=== PATIENT | male | born 1955 | race Caucasian/White ===

== ENCOUNTER 2016-06-20 20:47 | Observation (INO) | payer SELFPAY ==
[~2016-06-20] VITALS: Ht 182.9 cm; Wt 93.9 kg
[2016-06-20 21:26] LABS: HEMATOCRIT 39.1 % (38.0-50.0); MCH 26.6 PG (29.0-34.0); MCHC 32.5 G/DL (30.0-36.0); MEAN PLAT.VOLUME 8.5 uM^3 (9.0-12.4); PLATELET COUNT 122 K/uL (156-360); RBC DIS.WIDTH-CV 14.3 % (11.8-14.6); RBC DIS.WIDTH-SD 42.2 % (39-53); RED BLOOD COUNT 4.77 M/uL (4.00-5.50)
[2016-06-20 21:35] LABS: CHLORIDE 106 mEq/L (99-109); POTASSIUM 3.7 mEq/L (3.7-5.4); SODIUM 140 mEq/L (136-147)
[2016-06-20 21:37] LABS: GLUCOSE 93 mg/dL (70-99)
[2016-06-20 21:38] LABS: ANION GAP 10 MEQ/L (2-14); PROTHROMBIN TIME 10.3 (9.2-11.2); PTT 27.4 (25-32)
[2016-06-20 21:39] LABS: TOTAL BILIRUBIN 0.5 mg/dL (0.0-1.0)
[2016-06-20 21:40] LABS: ALKALINE PHOSPHATASE 96 IU/L (3-129)
[2016-06-20 21:41] LABS: GFR ESTIMATE (CALCULATED) > 59 mL/min/
[2016-06-20 21:42] LABS: UREA NITROGEN (BUN) 14 mg/dL (9-23)
[2016-06-20] MEDS ORDERED: ADVIL200 MG PO (23:01)
[2016-06-21 03:04] VITALS: BP 143/94
[2016-06-21 07:14] LABS: PROTHROMBIN TIME 10.5 (9.2-11.2)
[2016-06-21 07:31] LABS: ALKALINE PHOSPHATASE 80 IU/L (3-129); DIRECT BILIRUBIN 0.1 mg/dL (0.0-0.3); TOTAL BILIRUBIN 0.5 MG/DL (0.0-1.0)
[2016-06-21 08:42] VITALS: BP 130/65
[2016-06-21 12:05] VITALS: BP 149/80
[2016-06-21 17:14] VITALS: BP 147/74
[2016-06-21 20:21] VITALS: BP 167/96
[2016-06-21 23:29] VITALS: BP 148/94
[2016-06-22 03:55] VITALS: BP 125/78
[2016-06-22 07:14] LABS: MCH 26.7 PG (29.0-34.0); MCHC 31.7 G/DL (30.0-36.0); MCV 84.1 FL (86-99); RBC DIS.WIDTH-CV 14.4 % (11.8-14.6); RED BLOOD COUNT 4.16 M/uL (4.00-5.50)
[2016-06-22 07:16] LABS: ANION GAP 5 MEQ/L (2-14); CHLORIDE 108 MEQ/L (99-109); GFR ESTIMATE (CALCULATED) > 59 mL/min/; GLUCOSE 101 mg/dL (70-99); POTASSIUM 4.2 MEQ/L (3.7-5.4); SAMPLE HEMOLYSIS CHECK 0; SAMPLE ICTERIC CHECK 0; SAMPLE LIPEMIA CHECK 0; SODIUM 140 MEQ/L (136-147); UREA NITROGEN (BUN) 11 mg/dL (9-23)
[2016-06-22 08:17] LABS: WHITE BLOOD COUNT 2.5 K/uL (4.1-10.2)
[2016-06-22 08:19] LABS: ALKALINE PHOSPHATASE 70 IU/L (3-129); DIRECT BILIRUBIN 0.1 mg/dL (0.0-0.3)
[2016-06-22 08:20] LABS: TOTAL BILIRUBIN 0.3 MG/DL (0.0-1.0)
[2016-06-22 08:47] VITALS: BP 129/88
[2016-06-22 11:37] VITALS: BP 131/70
[2016-06-22 14:39] LABS: MEAN PLAT.VOLUME 8.9 uM^3 (9.0-12.4); PLATELET COUNT 85 K/uL (156-360)
[2016-06-22 15:37] VITALS: BP 121/74
[2016-06-22 19:45] VITALS: BP 126/86
[2016-06-23 00:27] VITALS: BP 153/87
[2016-06-23 04:15] VITALS: BP 137/77
[2016-06-23 08:13] VITALS: BP 170/108
[2016-06-23] MEDS ORDERED: GABAPENTIN300 MG PO (10:08)
[2016-06-23] MEDS ORDERED: OXYCODONE-APAP1 EACH PO (10:08)
[2016-06-23] MEDS ORDERED: NICOTINE PATCH1 EAC2 TD (10:08)
== END 2016-06-23 11:27 | disposition home or self-care (01) ==
LOC: EME → EDOF 06-21 01:21 → 5WEST 06-21 01:21 → EDOF 06-21 01:21 → 5WEST 06-21 02:26
PROVIDERS: Emergency Medicine; Internal Medicine
DX: M54.9 Dorsalgia, unspecified (principal); M47.9 Spondylosis, unspecified; R26.2 Difficulty in walking, not elsewhere classified; M62.81 Muscle weakness (generalized); N28.89 Other specified disorders of kidney and ureter; R91.1 Solitary pulmonary nodule; I77.1 Stricture of artery; F17.210 Nicotine dependence, cigarettes, uncomplicated; R94.5 Abnormal results of liver function studies; R20.0 Anesthesia of skin
CPT/HCPCS: 70450; 71010; 71260; 72125; 72129; 72132; 72141; 72170; 74177; 74183; 80048; 80053; 80076; 83605; 85027; 85610; 85730; 86850; 86900; 86901; 97530 GO; 97530 GP; 99281; 99285; G0378; G8987 CK; G8988 GO CH; J1170; J1644; J2270; J2405; J3010; J7030; J7050